=== PATIENT | male | born 1955 | race Caucasian/White ===

== ENCOUNTER 2018-03-20 04:14 | Emergency (ER) | payer OTHER ==
[~2018-03-20] VITALS: Ht 175.3 cm; Wt 94.3 kg
[2018-03-20 04:33] LABS: ABSOLUTE EOSINOPHILS 0.4 thou/uL (0.0-0.7); ABSOLUTE LYMPHOCYTES 1.5 thou/uL (0.8-5.3); ABSOLUTE MONOCYTES 0.7 thou/uL (0.0-1.2); ABSOLUTE NEUTROPHILS 2.2 thou/uL (1.6-8.1); BASOPHILS 0.6 %; EOSINOPHILS 8.6 %; HEMATOCRIT 41.5 % (42.0-52.0); HEMOGLOBIN 14.2 gm/dL (14.0-18.0); LYMPHOCYTES 30.5 %; MCH 32.8 pg (26.0-34.0); MCHC 34.2 g/dL (28.0-37.0); MCV 96.1 fL (80.0-100.0); MONOCYTES 14.8 %; MPV 7.2 fl. (7.2-11.1); NUCLEATED RBCS 0 /100WBC; PLATELET COUNT* 304 thou/uL (150-400); POLYS 45.5 %; RBC 4.32 mil/uL (4.50-6.00); RDW-CV 12.9 % (10.5-14.5); WBC 4.9 thou/uL (4.0-11.0)
[2018-03-20] MEDS ORDERED: NORVASC10 MG PO (04:46)
[2018-03-20] MEDS ORDERED: ATORVASTATIN CA40 MG PO (04:46)
[2018-03-20] MEDS ORDERED: HYDROXYZINE HCL25 M1 (04:47)
[2018-03-20] MEDS ORDERED: NOVOLOG100 UNIT/1 SUBQ (04:47)
[2018-03-20] MEDS ORDERED: LEVEMIR100 UNIT/1 SUBQ (04:48)
[2018-03-20] MEDS ORDERED: LISINOPRIL10 MG PO (04:49)
[2018-03-20] MEDS ORDERED: METFORMIN HCL500 MG PO (04:49)
[2018-03-20] MEDS ORDERED: ANECREAM5 GM TOP (04:49)
[2018-03-20] MEDS ORDERED: TOPROL XL25 MG PO (04:50)
[2018-03-20] MEDS ORDERED: TRAMADOL 50 MG50 MG (04:50)
[2018-03-20 05:00] LABS: INR 0.9; PROTIME 9.7 Seconds (9.20-11.50)
[2018-03-20 05:06] LABS: ANION GAP 7 mmol/L (7-16); BUN 12 mg/dL (7-18); CALCIUM 9.1 mg/dL (8.5-10.1); CHLORIDE 100 mmol/L (98-107); CO2 28 mmol/L (21-32); CREATININE 0.8 mg/dL (0.6-1.3); GLUCOSE 202 mg/dL (70-99); POTASSIUM 4.1 mmol/L (3.5-5.1); SODIUM 135 mmol/L (136-145)
[2018-03-20 05:11] LABS: ALBUMIN 3.8 g/dL (3.4-5.0); ALKALINE PHOSPHATASE 100 U/L (46-116); LIPASE 117 U/L (73-393); NT-PRO BRAIN NAT PEPTIDE 208 pg/mL (<300); SGOT 29 U/L (15-37); SGPT 88 U/L (30-65); TOTAL BILIRUBIN 0.4 mg/dL (<0.1-1.0); TOTAL PROTEIN 7.5 g/dL (6.4-8.2); TROPONIN-I LEVEL <0.06 ng/mL (<0.06)
[2018-03-20 05:49] LABS: URINE BILIRUBIN NEGATIVE (Negative); URINE BLOOD NEGATIVE (Negative); URINE CLARITY CLEAR; URINE COLOR YELLOW; URINE GLUCOSE-RANDOM 2+ (Negative); URINE KETONES NEGATIVE (Negative); URINE LEUKOCYTES-REFLEX NEGATIVE (Negative); URINE NITRITE-REFLEX NEGATIVE (Negative); URINE PROTEIN NEGATIVE (Negative); URINE SPECIFIC GRAVITY 1.015 (1.005-1.030); URINE UROBILINOGEN 0.2 E.U./dl (0.2-1.0)
[2018-03-20 06:00] LABS: AMP/METHAMP Negative (Negative); BARBITURATES Negative (Negative); BENZODIAZEPINES Negative (Negative); COCAINE Negative (Negative); METHADONE Negative (Negative); OPIATES Negative (Negative); PCP Negative (Negative); THC Negative (Negative)
[2018-03-20 07:58] VITALS: BP 119/82
--- NOTE | 2018-03-20 12:48 | EKG ---
[place] [address] ELECTROCARDIOGRAM REPORT Name: REJI FOSTER Room: 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 : 1955 Requested By: Kenyetta Short Order Number: [id number] MD: Demarco Chavez Measurements Intervals [place] Rate: 64 P: 13 [place]: 175 QRS: 28 QRSD: 92 T: 20 QT: 379 QTc: 391 Interpretive Statements Sinus rhythm Inferior infarct, old Baseline wander in lead(s) V3,V4 No previous ECG available for comparison Electronically Signed On 03-20-2018 12:48:47 CDT by Demarco Chavez [email or web address] <ELECTRONICALLY SIGNED> By: Demarco Chavez MD, [facility] 03/20/18 1248 0420 0420 Demarco Chavez MD, FAC /EPI
== END 2018-03-20 08:00 | disposition home or self-care (01) ==
LOC: M.ERS 04:14
PROVIDERS: Emergency Medicine
DX: F41.9 Anxiety disorder, unspecified (principal); E11.9 Type 2 diabetes mellitus without complications; I10 Essential (primary) hypertension; Z88.6 Allergy status to analgesic agent; Z88.8 Allergy status to other drugs, medicaments and biological substances; Z95.5 Presence of coronary angioplasty implant and graft; Z79.899 Other long term (current) drug therapy; Z79.4 Long term (current) use of insulin

== ENCOUNTER 2020-05-12 18:57 | Inpatient (IN) | payer OTHER ==
[~2020-05-12] VITALS: Ht 172.7 cm; Wt 99.2 kg
[~2020-05-12 18:57] MED LIST: ANECREAM5 GM TOP; HYDROXYZINE HCL25 M1; LEVEMIR100 UNIT/1 SUBQ; LIPITOR40 MG PO; LISINOPRIL10 MG PO; METFORMIN HCL500 MG PO; NORVASC10 MG PO; NOVOLOG100 UNIT/1 SUBQ; TOPROL XL25 MG PO; TRAMADOL 50 MG50 MG
[2020-05-12 19:02] VITALS: BP 176/87
[2020-05-12 19:43] LABS: HEMATOCRIT 38.6 % (42.0-52.0); HEMOGLOBIN 12.5 gm/dL (14.0-18.0); MCH 32.5 pg (26.0-34.0); MCHC 32.5 g/dL (28.0-37.0); MCV 100.1 fL (80.0-100.0); MPV 6.9 fl. (7.2-11.1); NUCLEATED RBCS 0 /100WBC; PLATELET COUNT* 411 thou/uL (150-400); RBC 3.86 mil/uL (4.50-6.00); RDW-CV 13.1 % (10.5-14.5); WBC 11.8 thou/uL (4.0-11.0)
[2020-05-12 19:51] LABS: APTT 33.5 Seconds (25.0-31.3); PROTIME 10.8 Seconds (9.20-11.50)
[2020-05-12 19:53] LABS: CALCIUM 8.7 mg/dL (8.5-10.1); CREATININE 1.8 mg/dL (0.6-1.3); POTASSIUM 5.3 mmol/L (3.5-5.1)
[2020-05-12 19:59] LABS: ALBUMIN 3.7 g/dL (3.4-5.0); TOTAL BILIRUBIN 0.8 mg/dL (<0.1-1.0); TOTAL PROTEIN 9.1 g/dL (6.4-8.2)
[2020-05-12 20:45] LABS: ABSOLUTE LYMPHOCYTES 0.4 thou/uL (0.8-5.3); ABSOLUTE MONOCYTES 0.7 thou/uL (0.0-1.2); ABSOLUTE NEUTROPHILS 10.7 thou/uL (1.6-8.1)
[2020-05-12 20:46] LABS: PLATELET ESTIMATE ADEQUATE
[2020-05-12 20:47] LABS: MACROCYTES Occasional
[2020-05-12 20:57] LABS: BE -22.3 mmol/L (-2 to +3); PCO2 VENOUS 27.5 mmHg (41.0-51.0); PO2 VENOUS 36.1 mmHg (35.0-45.0)
[2020-05-12 23:32] LABS: MAGNESIUM 2.3 mg/dL (1.8-2.4); PHOSPHORUS* 5.9 mg/dL (2.5-4.9)
[2020-05-13] VITALS (28 sets, daily range): BP systolic 80–234; BP diastolic 39–97
[2020-05-13 00:52] LABS: URINE BLOOD TRACE (Negative); URINE CLARITY CLEAR; URINE COLOR YELLOW; URINE GLUCOSE-RANDOM 1+ (Negative); URINE LEUKOCYTES-REFLEX NEGATIVE (Negative); URINE NITRITE-REFLEX NEGATIVE (Negative); URINE PROTEIN TRACE (Negative); URINE SPECIFIC GRAVITY 1.025 (1.005-1.030); URINE UROBILINOGEN 0.2 E.U./dl (0.2-1.0)
[2020-05-13 00:54] LABS: URINE BILIRUBIN 2+ (Negative); URINE KETONES 3+ (Negative)
[2020-05-13 00:56] LABS: ICTOTEST (BILI CONFIRMATORY) Negative (Negative)
[2020-05-13 03:35] LABS: ALBUMIN 3.1 g/dL (3.4-5.0); CALCIUM 7.4 mg/dL (8.5-10.1); CREATININE 1.6 mg/dL (0.6-1.3); PHOSPHORUS* 3.1 mg/dL (2.5-4.9); POTASSIUM 5.1 mmol/L (3.5-5.1); TOTAL BILIRUBIN 0.7 mg/dL (<0.1-1.0); TOTAL PROTEIN 6.8 g/dL (6.4-8.2)
--- NOTE | 2020-05-13 09:51 | EKG ---
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[place] : 1955 Requested By: Alice Degroot Order Number: [id number] MD: Vinicius Boyce Measurements Intervals [place] Rate: 114 P: 31 MT: 173 QRS: 80 QRSD: 99 T: -21 QT: 311 QTc: 429 Interpretive Statements Sinus tachycardia Inferior infarct, age indeterminate Consider anterior infarct Compared to ECG 03/20/2018 04:20:30 Sinus rhythm no longer present Myocardial infarct finding still present Electronically Signed On 05-13-2020 9:51:44 INTERNET ECOMMERCE SPECIALIST by Vinicius Boyce [email or web address] <ELECTRONICALLY SIGNED> By: Marina Boyce MD, FACC 05/13/20 0951 02 02 Marina Boyce MD, FACC /EPI
[2020-05-13 10:45] LABS: ALBUMIN 2.7 g/dL (3.4-5.0); CALCIUM 7.9 mg/dL (8.5-10.1); CREATININE 1.5 mg/dL (0.6-1.3); PHOSPHORUS* 2.3 mg/dL (2.5-4.9); POTASSIUM 4.2 mmol/L (3.5-5.1)
[2020-05-13 11:38] LABS: ALBUMIN 2.7 g/dL (3.4-5.0); CALCIUM 7.7 mg/dL (8.5-10.1); CREATININE 1.5 mg/dL (0.6-1.3); POTASSIUM 4.2 mmol/L (3.5-5.1); TOTAL BILIRUBIN 0.6 mg/dL (<0.1-1.0); TOTAL PROTEIN 6.9 g/dL (6.4-8.2)
[2020-05-13 14:56] LABS: ALBUMIN 2.8 g/dL (3.4-5.0); CALCIUM 7.7 mg/dL (8.5-10.1); CREATININE 1.5 mg/dL (0.6-1.3); PHOSPHORUS* 2.2 mg/dL (2.5-4.9); POTASSIUM 4.1 mmol/L (3.5-5.1); TOTAL BILIRUBIN 0.6 mg/dL (<0.1-1.0); TOTAL PROTEIN 6.8 g/dL (6.4-8.2)
--- NOTE | 2020-05-13 18:51 | NUR ---
KIMBERLY RESTING IN BED. AOX4. INSULIN GTT AT 1U/HR THROUGHOUT TODAY. ANION GAP CLOSED AT 14 AND GLUCOSE BETWEEN 139-156 THIS SHIFT. RECEIVED OPRDERS TO TRANSITION FROM INSULKIN GTT TO SUBQ LANTUS AND LOW DOES SLIDING SCALE. PATIENT IS TELE STATUS NOW PER DR AGOSTO. VSS. UP WITH NWB TO LEFT FOOT. URINAL FOR VOIDS.
[2020-05-14] VITALS (11 sets, daily range): BP systolic 118–149; BP diastolic 58–87
[2020-05-14 04:11] LABS: HEMATOCRIT 31.9 % (42.0-52.0); HEMOGLOBIN 10.6 gm/dL (14.0-18.0); MCH 32.3 pg (26.0-34.0); MCHC 33.3 g/dL (28.0-37.0); RBC 3.29 mil/uL (4.50-6.00); RDW-CV 12.7 % (10.5-14.5); WBC 3.5 thou/uL (4.0-11.0)
[2020-05-14 04:38] LABS: ALBUMIN 2.8 g/dL (3.4-5.0); CALCIUM 7.8 mg/dL (8.5-10.1); CREATININE 1.1 mg/dL (0.6-1.3); POTASSIUM 3.7 mmol/L (3.5-5.1); TOTAL BILIRUBIN 0.5 mg/dL (<0.1-1.0); TOTAL PROTEIN 6.8 g/dL (6.4-8.2)
[2020-05-14 05:48] LABS: ALBUMIN 2.8 g/dL (3.4-5.0); CALCIUM 7.9 mg/dL (8.5-10.1); CREATININE 1.1 mg/dL (0.6-1.3); PHOSPHORUS* 1.3 mg/dL (2.5-4.9); POTASSIUM 3.7 mmol/L (3.5-5.1)
--- NOTE | 2020-05-14 06:47 | NUR ---
ASSESSMENTS CHARTED. PATIENT CONTINUES TO COMPLAIN OF PAIN TO LLE. POOR CONTROL WITH REPEATED PAIN MEDICATION. CONCERNS FOR DVT WITH RECENT SURGERY TO AFFECTED LIMB, ELEVATED D-DIMER ON ADMISSION, AND EXCESSIVE WARMTH TO EXTREMITY. PATIENT WILL HAVE DOPPLER OF EXTREMITY IN AM. OFF INSULIN GTT AT 1900. NO OTHER SIGNIFICANT EVENTS THIS SHIFT.
--- NOTE | 2020-05-14 07:46 | NUR ---
NIGHT RN REPORTS PT REQUESTING HIGH DOSE NARCOTICS FREQUENTLY AND TRYING TO GET OUT OF BED. TALK TO DR. MELISSA THIS AM AND LOWER DOSE OF NARCOTICS AND CHANGE PRN TO EVERY 4 HOURS. WILL MAKE SURE TO UPDATE WHITE BOARD IN PATIENT ROOM AND CONTINUE TO ASSESS.
--- NOTE | 2020-05-14 10:19 | NUR ---
Nutrition: Consult received for diabetes education, post-op foot surgery. RD will educate pt when out of ICU. Follow up on status 05/15/20.
--- NOTE | 2020-05-14 10:54 | NUR ---
REPORT CALLED TO JAYSON RN AND PT TRANSFERRED TO ROOM 218.
--- NOTE | 2020-05-14 15:32 | NUR ---
Pt is A&O. Up from ICU today. Pt resides at home with his , dtr and SAMUEL. Pt had reconstructive surgery on his left foot last Thursday at [facility], Pt has been using a walker for surgery and is NWB. Family assists a needed. Pt stated that his dtr is looking into getting him a knee scooter. No hx of HH or SNF. Pt states that he wants HH [place], plan to use [facility], referral and orders will need to be faxed f:[phone] p:[phone]. Goal is home. Following.
--- NOTE | 2020-05-14 18:38 | NUR ---
PT UP FROM ICU AROUND 1130 AM PT C/O PAIN TO FOOT MAINLY WHEN MOVING AROUND FROM CHAIR TO BED ACHS BLOOD SUGARS HAVE BEEN WNL FOR THE MOST PART THE DR THAT DID HIS DEBRIDEMENT CALLED AND WAS UPSET NO ONE CALLED HIM THIS WEEKEND THIS NURSE GOT IN REPORT THAT HE WAS SUPPOSED TO COME SEE THE PT TODAY AND CHANGE THE BANDAGE TO A CAST GOT IN TOUCH WITH HOSPITALIST AND CONSULT PUT IN WE ARE TO CHANGE BANDAGE TOMORROW PT NON WEIGHTBEARING TO LEFT FOOT SR TO ST ON THE MONITOR LS CLEAR PT IS READY TO GO HOME AND FEELS MUCH BETTER HE SAYS
[2020-05-15 00:03] VITALS: BP 130/72
[2020-05-15 03:52] LABS: HEMATOCRIT 31.4 % (42.0-52.0); HEMOGLOBIN 10.8 gm/dL (14.0-18.0); MCH 32.7 pg (26.0-34.0); MCHC 34.5 g/dL (28.0-37.0); MCV 94.9 fL (80.0-100.0); MPV 6.4 fl. (7.2-11.1); RBC 3.31 mil/uL (4.50-6.00); RDW-CV 12.6 % (10.5-14.5); WBC 4.4 thou/uL (4.0-11.0)
[2020-05-15 03:55] VITALS: BP 158/92
[2020-05-15 04:10] LABS: ALBUMIN 3.2 g/dL (3.4-5.0); CREATININE 0.7 mg/dL (0.6-1.3); POTASSIUM 3.4 mmol/L (3.5-5.1); TOTAL BILIRUBIN 0.5 mg/dL (<0.1-1.0); TOTAL PROTEIN 7.3 g/dL (6.4-8.2)
[2020-05-15 08:00] VITALS: BP 153/86
--- NOTE | 2020-05-15 08:50 | NUR ---
PT IS ABLE TO COMMUNICATE HIS NEEDS TO STAFF EFFECTIVELY. CURRENT PAIN MEDICATION REGIMEN HAS BEEN ADEQUATE FOR CONTROLLING HIS PAIN UP TO THIS TIME. BANDAGE AND JANINA WRAP TO LEFT ANKLE/FOOT IS C/D/I AT THIS TIME; MD TO COME SEE PATIENT TODAY, HOPEFULLY. POSSIBLE DISCHARGE TODAY OR TOMORROW. PT DID RUN LOW FEVER FOR A TIME OVERNIGHT.
[2020-05-15 12:37] VITALS: BP 118/88
[2020-05-15] MEDS ORDERED: ANTACID650 MG PO (14:41)
[2020-05-15 16:01] VITALS: BP 118/88
--- NOTE | 2020-05-15 16:41 | NUR ---
PT DISCHARGED TO HOME F/U WITH DR COLINDRES ON THURSDAY PAIN MANAGED RIGHT NOW NO QUESTIONS OR CONCERNS AT THIS TIME
--- NOTE | 2020-05-16 15:54 | CON ---
[address] [address] CONSULTATION Name: REJI FOSTER Room: [address] IN .R.#: [id number] Admission: 05/12/20 Attend Phys: Serafin Ricci Discharge: 05/15/20 Date of : 57 Report #: [id number] THIS REPORT FOR: //name// cc: Natalie Molina MD, Keninde A. MD ~ DATE OF SERVICE: 05/14/2020 NEPHROLOGY CONSULTATION CONSULTING PHYSICIAN: Dr. Degroot. REASON FOR NEPHROLOGY CONSULTATION: Metabolic acidosis. REASON FOR ADMISSION: Shortness of breath. HISTORY OF PRESENT ILLNESS: This is a 65-year-old male who presented with shortness of breath, recently had a left foot and ankle surgery [facility] He was found to be in DKA. His serum bicarbonate was 8.0. His creatinine was 1.8. He does take lisinopril at home and he was started on IV fluids, getting normal saline and his CO2 has improved to 19. He is not in DKA anymore. His creatinine is down to 1.1. ALLERGIES: MORPHINE and GABAPENTIN. REVIEW OF SYSTEMS: As mentioned in history of present illness, otherwise, 10-point review of systems done, negative. PAST MEDICAL AND SURGICAL HISTORY: Includes diabetes type 2, hypertension, DC with stent placement in 2009 and diverticulitis with partial lower intestinal resection. HOME MEDICATIONS: Include amlodipine 10 mg a day, atorvastatin 40 mg a day, hydroxyzine 25 mg, insulin aspart, insulin detemir, lidocaine, lisinopril, metformin 1000 mg b.i.d., metoprolol and tramadol. SOCIAL HISTORY: No smoking or alcohol use or recreational drug use reported. FAMILY HISTORY: Reviewed and noncontributory. PHYSICAL EXAMINATION: VITAL SIGNS: Blood pressure is 125/73, afebrile, pulse rate is 94, respiratory rate is 15, pulse ox 97% on room air. GENERAL: He is awake, alert, oriented x 3. HEAD AND EYES: Atraumatic and normocephalic. Conjunctivae normal. EARS, NOSE, AND THROAT: Normal ears and nose. Mucous membranes are moist. NECK: [place] [address] CONSULTATION Name: REJI FOSTER Room: [address]#: [id number] Admission: 05/12/20 Attend Phys: Serafin Ricci Discharge: 05/15/20 Date of : 57 Report #: [id number] CHEST: Bilaterally clear to auscultation. No crackles or wheezing. CARDIOVASCULAR: S1, S2 normal. No murmurs. ABDOMEN: Soft, nondistended, nontender. Bowel sounds are present. EXTREMITIES: No lower extremity edema. NEUROLOGICAL FUNCTION: Grossly internal. PSYCHIATRIC: Mood and affect seem to be normal. LABORATORY DATA: His WBC 3.5, hemoglobin 10.2, platelet count 353, CO2 of 19 and creatinine of 1.1. Other labs were reviewed. IMAGING: V/Q scan and chest x-ray reports were reviewed. ASSESSMENT: 1. Metabolic acidosis, which is in the setting of diabetic ketoacidosis, has resolved. 2. Diabetic ketoacidosis, has resolved, history of diabetes type 2. 3. Acute kidney injury in the setting of intravascular volume depletion, DKA and lisinopril use, is also improving. Creatinine was 1.8 on admission and 1.1 now. There is no need for renal imaging. UA had ketones, no significant hematuria, trace proteinuria. 4. Hypertension. Blood pressure seems to be controlled. 5. Recent left ankle surgery. 6. Myocardial infarction with stent placed in 2009, stable from this standpoint. PLAN: 1. From Nephrology standpoint, there is nothing to recommend. He is on IV fluids which can be stopped once he is eating and drinking well. 2. Lisinopril should be able to be started after discharge as long as his systolic blood pressure remains more than 110 and avoid NSAIDs. Thank you for this consultation and we will be signing off now and call if you have any questions. Discussed with the patient's nurse and the patient. <ELECTRONICALLY SIGNED> By: Edna Rhodes MD 05/16/20 1554 0806 [id number] Rhodes MD /nt
== END 2020-05-15 16:42 | disposition home health service (06) | DRG 637 ==
LOC: M.ERS 18:57 → M.ICU 21:28 → M.TBA-ER 21:28 → M.2W 21:28 → M.ICU 05-13 00:15 → M.2W 05-14 10:59
PROVIDERS: Personal Emergency Response Attendant; ADMIT Internal Medicine; ATTEND Internal Medicine
DX: E11.10 Type 2 diabetes mellitus with ketoacidosis without coma (principal); N17.0 Acute kidney failure with tubular necrosis; R65.11 Systemic inflammatory response syndrome (SIRS) of non-infectious origin with acute organ dysfunction; E87.2 Acidosis; M25.572 Pain in left ankle and joints of left foot; I10 Essential (primary) hypertension; I25.2 Old myocardial infarction; Z95.5 Presence of coronary angioplasty implant and graft; Z79.4 Long term (current) use of insulin; Z79.899 Other long term (current) drug therapy; Z88.5 Allergy status to narcotic agent; Z88.8 Allergy status to other drugs, medicaments and biological substances; Z90.49 Acquired absence of other specified parts of digestive tract; Z20.828 Contact with and (suspected) exposure to other viral communicable diseases

== ENCOUNTER 2020-05-21 02:57 | Emergency (ER) | payer OTHER ==
[~2020-05-21] VITALS: Ht 172.7 cm; Wt 97.5 kg
[~2020-05-21 02:57] MED LIST changes: +ANTACID650 MG PO
[2020-05-21] MEDS ORDERED: XARELTO10 M1 PO (03:19)
[2020-05-21] MEDS ORDERED: DULCOLAX STOOL100 M1 PO (03:20)
[2020-05-21] MEDS ORDERED: LYRICA25 MG PO (03:20)
[2020-05-21] MEDS ORDERED: PERCOCET 7.5-31 EAC1 PO (03:21)
[2020-05-21 03:39] LABS: ABSOLUTE EOSINOPHILS 0.1 thou/uL (0.0-0.7); ABSOLUTE LYMPHOCYTES 1.5 thou/uL (0.8-5.3); ABSOLUTE MONOCYTES 0.7 thou/uL (0.0-1.2); ABSOLUTE NEUTROPHILS 4.2 thou/uL (1.6-8.1); BASOPHILS 0.6 %; HEMATOCRIT 35.2 % (42.0-52.0); HEMOGLOBIN 11.7 gm/dL (14.0-18.0); LYMPHOCYTES 23.6 %; MCH 32.2 pg (26.0-34.0); MCHC 33.4 g/dL (28.0-37.0); MCV 96.4 fL (80.0-100.0); MONOCYTES 10.2 %; MPV 6.1 fl. (7.2-11.1); NUCLEATED RBCS 0 /100WBC; PLATELET COUNT* 729 thou/uL (150-400); POLYS 63.6 %; RBC 3.65 mil/uL (4.50-6.00); RDW-CV 13.6 % (10.5-14.5); WBC 6.6 thou/uL (4.0-11.0)
[2020-05-21 04:01] LABS: CALCIUM 9.1 mg/dL (8.5-10.1); CREATININE 1.2 mg/dL (0.6-1.3); POTASSIUM 4.2 mmol/L (3.5-5.1)
[2020-05-21 04:06] LABS: ALBUMIN 3.7 g/dL (3.4-5.0); TOTAL BILIRUBIN 0.5 mg/dL (<0.1-1.0); TOTAL PROTEIN 7.7 g/dL (6.4-8.2)
[2020-05-21 04:42] LABS: URINE BILIRUBIN NEGATIVE (Negative); URINE BLOOD NEGATIVE (Negative); URINE CLARITY CLEAR; URINE COLOR YELLOW; URINE GLUCOSE-RANDOM 3+ (Negative); URINE KETONES NEGATIVE (Negative); URINE LEUKOCYTES-REFLEX NEGATIVE (Negative); URINE NITRITE-REFLEX NEGATIVE (Negative); URINE PROTEIN NEGATIVE (Negative); URINE UROBILINOGEN 0.2 E.U./dl (0.2-1.0)
[2020-05-21] MEDS ORDERED: HYDROCODON-ACE1 EAC8 PO (05:36)
[2020-05-21] MEDS ORDERED: ZOFRAN ODT4 MG PO (05:36)
[2020-05-21 06:27] VITALS: BP 136/89
== END 2020-05-21 06:29 | disposition still patient (30) ==
LOC: M.ERS 02:57
PROVIDERS: Emergency Medicine
DX: F41.9 Anxiety disorder, unspecified (principal); K59.00 Constipation, unspecified; R10.9 Unspecified abdominal pain; R11.2 Nausea with vomiting, unspecified; E11.9 Type 2 diabetes mellitus without complications; I10 Essential (primary) hypertension; I25.2 Old myocardial infarction; Z95.5 Presence of coronary angioplasty implant and graft; Z79.899 Other long term (current) drug therapy; Z79.4 Long term (current) use of insulin; Z88.8 Allergy status to other drugs, medicaments and biological substances; Z88.5 Allergy status to narcotic agent; Z98.890 Other specified postprocedural states